=== PATIENT | male | born 1945 | race African-American/Black ===

== ENCOUNTER 2021-04-17 22:08 | Inpatient (IN) | payer OTHER ==
[~2021-04-17] VITALS: Ht 185.4 cm; Wt 101.2 kg
[2021-04-17] MEDS ORDERED: SODIUM CHLORIDE 0.9% 1,000 ML IV ONE (22:45)
[2021-04-17] MEDS ORDERED: ASPIRIN 81MG TABLET PO ONE (22:45)
[2021-04-17 23:58] LABS: EOSINOPHILS % 1.8 % (0.0-5.0); HEMATOCRIT. 36.2 % (42.0-52.0); HEMOGLOBIN. 11.9 g/dL (14.0-18.0); LYMPHOCYTES % 17.1 % (20.0-50.0); MEAN CORPUSCULAR VOLUME 88.2 fL (80.0-94.0); MEAN PLATELET VOLUME 8.3 fl (7.4-10.4); MONOCYTES % 8.3 % (2.0-8.0); NEUTROPHILS % 71.8 % (40.0-76.0); PLATELET 222 x1000/uL (130-400); RED CELL DISTRIBUTION WIDTH 18.3 % (11.6-14.6)
[2021-04-18 00:09] LABS: CHLORIDE 112 mEq/L (98-107)
[2021-04-18] MEDS ORDERED: IPRATROPIUM/ALBUTEROL 0.5-3(2.5)MG/3ML NEB HHN PRN (08:30)
[2021-04-18] MEDS ORDERED: ACETAMINOPHEN 325MG TABLET PO PRN ×2 (08:30)
[2021-04-18] MEDS ORDERED: DOCUSATE SODIUM 100MG CAPSULE PO PRN (08:30)
[2021-04-18] MEDS ORDERED: HYDROCODONE/ACETAMINOPHEN 5/325MG TABLET PO PRN (08:30)
[2021-04-18] MEDS ORDERED: CLONIDINE 0.1MG TABLET PO PRN (08:30)
[2021-04-18] MEDS ORDERED: LORAZEPAM 0.5MG TABLET PO PRN (08:30)
[2021-04-18] MEDS ORDERED: ONDANSETRON HCL 4MG/2ML INJ IV PRN (08:30)
[2021-04-18 09:00] VITALS: BP 152/68
[2021-04-18 09:30] VITALS: BP 152/68
[2021-04-18] MEDS ORDERED: *PATIENT'S OWN MEDICATION STORAGE XX SCH (10:30)
[2021-04-18 12:04] VITALS: BP 124/58
[2021-04-18 14:54] VITALS: BP 113/62
[2021-04-18] MEDS ORDERED: LEVO75TA7 MT (15:47)
[2021-04-18] MEDS ORDERED: ATOR20TA65 MT (15:57)
[2021-04-18] MEDS ORDERED: HYDR-4379 MT (15:57)
[2021-04-18] MEDS ORDERED: CARV25TA47 PO (16:00)
[2021-04-18] MEDS ORDERED: NIFE90TA60 PO (16:06)
[2021-04-18] MEDS ORDERED: ASPI-1497 PO (16:06)
[2021-04-18] MEDS ORDERED: ASPI-1406 PO (16:06)
[2021-04-18] MEDS ORDERED: HYDR-4134 PO (16:14)
[2021-04-18 16:25] VITALS: BP 119/62
[2021-04-18 20:00] VITALS: BP 141/80
[2021-04-18 20:43] LABS: CLARITY URINE CLEAR (CLEAR); COLOR URINE YELLOW (YELLOW); KETONES URINE NEGATIVE (NEGATIVE); LEUKOCYTE ESTERASE URINE NEGATIVE (NEGATIVE); NITRITE URINE NEGATIVE (NEGATIVE); OCCULT BLOOD URINE NEGATIVE (NEGATIVE); PROTEIN URINE 4+ (NEGATIVE); SPECIFIC GRAVITY URINE 1.015 (1.005-1.030); UROBILINOGEN URINE 0.2 E.U./dL (0.2-1.0)
[2021-04-18] MEDS: LEVOTHYROXINE SODIUM 75MCG TABLET PO SCH (20:45)
[2021-04-18] MEDS: ASPIRIN 81MG EC TABLET PO SCH (20:45)
[2021-04-18] MEDS: HYDROCORTISONE 10MG TABLET PO SCH (20:46)
[2021-04-18] MEDS: ATORVASTATIN CALCIUM 20MG TABLET PO SCH (20:46)
[2021-04-18] MEDS: CARVEDILOL 12.5MG TABLET PO SCH (20:46)
[2021-04-18] MEDS: FUROSEMIDE 40MG/4ML VIAL IVP SCH (21:26)
[2021-04-18] MEDS ORDERED: MAGNESIUM/ALUMINUM HYDROXIDE/SIMETHICONE 30ML UDC PO PRN (21:30)
[2021-04-19 00:02] VITALS: BP_SYST 154; BP_SYST 96; BP_DIAS 53; BP_DIAS 59
[2021-04-19 04:20] VITALS: BP 140/56
[2021-04-19] MEDS: LEVOTHYROXINE SODIUM 75MCG TABLET PO SCH (06:30)
[2021-04-19 06:35] LABS: BASOPHILS % 0.4 % (0.0-2.0); EOSINOPHILS % 1.1 % (0.0-5.0); HEMATOCRIT. 34.5 % (42.0-52.0); HEMOGLOBIN. 11.5 g/dL (14.0-18.0); LYMPHOCYTES % 12.5 % (20.0-50.0); MEAN CORPUSCULAR HEMOGLOBIN 29.7 pg (28.0-32.0); MEAN CORPUSCULAR VOLUME 88.7 fL (80.0-94.0); MEAN PLATELET VOLUME 9.3 fl (7.4-10.4); MONOCYTES % 10.8 % (2.0-8.0); NEUTROPHILS % 75.2 % (40.0-76.0); PLATELET 176 x1000/uL (130-400); RED BLOOD CELL COUNT 3.88 mill/uL (4.7-6.1); RED CELL DISTRIBUTION WIDTH 18.2 % (11.6-14.6)
[2021-04-19] MEDS: FUROSEMIDE 40MG/4ML VIAL IVP SCH (07:31)
[2021-04-19 08:00] VITALS: BP 139/85
[2021-04-19 08:40] LABS: FOLIC ACID (FOLATE) SERUM 7.4 ng/mL (>5.38)
[2021-04-19] MEDS ORDERED: NIFEDIPINE XL 90MG TAB PO SCH (09:00)
[2021-04-19] MEDS: CARVEDILOL 12.5MG TABLET PO SCH (09:25)
[2021-04-19] MEDS: HYDROCORTISONE 10MG TABLET PO SCH (09:25)
[2021-04-19] MEDS: HYDRALAZINE HCL 25MG TABLET PO SCH ×2 (09:25→17:39)
[2021-04-19] MEDS: ASPIRIN 81MG EC TABLET PO SCH (09:25)
[2021-04-19] MEDS: ATORVASTATIN CALCIUM 20MG TABLET PO SCH (09:26)
[2021-04-19 12:00] VITALS: BP 141/55
[2021-04-19] MEDS: DILTIAZEM HCL 90MG TABLET PO SCH ×2 (12:00→17:49)
[2021-04-19] MEDS: IPRATROPIUM/ALBUTEROL 0.5-3(2.5)MG/3ML NEB HHN SCH ×2 (12:50→21:07)
[2021-04-19] MEDS: CLONIDINE 0.1MG TABLET PO SCH ×2 (13:47→21:36)
[2021-04-19 16:00] VITALS: BP 107/51
[2021-04-19 18:00] LABS: CREATINE KINASE 45 IU/L (39-308)
[2021-04-19 20:00] VITALS: BP 107/54
[2021-04-20] VITALS: BP 115/49
[2021-04-20] MEDS: IPRATROPIUM/ALBUTEROL 0.5-3(2.5)MG/3ML NEB HHN SCH ×2 (01:18→09:08)
[2021-04-20 04:00] VITALS: BP 115/52
[2021-04-20] MEDS: DILTIAZEM HCL 90MG TABLET PO SCH ×3 (06:00→11:40)
[2021-04-20] MEDS: CLONIDINE 0.1MG TABLET PO SCH (06:00)
[2021-04-20] MEDS: LEVOTHYROXINE SODIUM 75MCG TABLET PO SCH (06:15)
[2021-04-20 06:16] LABS: BASOPHILS % 0.5 % (0.0-2.0); EOSINOPHILS % 4.4 % (0.0-5.0); HEMATOCRIT. 32.2 % (42.0-52.0); HEMOGLOBIN. 10.6 g/dL (14.0-18.0); LYMPHOCYTES % 28.9 % (20.0-50.0); MEAN CORPUSCULAR HEMOGLOBIN 29.2 pg (28.0-32.0); MEAN CORPUSCULAR VOLUME 88.4 fL (80.0-94.0); MEAN PLATELET VOLUME 8.8 fl (7.4-10.4); MONOCYTES % 13.5 % (2.0-8.0); NEUTROPHILS % 52.7 % (40.0-76.0); PLATELET 180 x1000/uL (130-400); RED BLOOD CELL COUNT 3.64 mill/uL (4.7-6.1)
[2021-04-20 08:00] VITALS: BP 112/46
[2021-04-20] MEDS: HYDROCORTISONE 10MG TABLET PO SCH (08:25)
[2021-04-20] MEDS: ASPIRIN 81MG EC TABLET PO SCH (08:25)
[2021-04-20] MEDS: ATORVASTATIN CALCIUM 20MG TABLET PO SCH (08:25)
[2021-04-20] MEDS: HYDRALAZINE HCL 25MG TABLET PO SCH (08:27)
[2021-04-20 11:36] VITALS: BP 112/54
[2021-04-20] MEDS ORDERED: ALBU90AE INH (11:51)
== END 2021-04-20 15:55 | disposition home or self-care (01) | DRG 291 ==
LOC: ER 22:08 → EDBEDREQTM 04-18 01:55 → EDBEDREQ 04-18 01:55 → EDBEDREQDT 04-18 01:55 → EDBEDREQ 04-18 02:37 → EDBEDREQTM 04-18 02:37 → ENRESERV 04-18 07:18 → 6WST 04-18 08:29
PROVIDERS: ADMIT Internal Medicine; ATTEND Internal Medicine
PROC: 5A09357 Assistance with Respiratory Ventilation, Less than 24 Consecutive Hours, Continuous Positive Airway Pressure (ICD-10-PCS; principal; 2021-04-18)
PROC: 5A09357 Assistance with Respiratory Ventilation, Less than 24 Consecutive Hours, Continuous Positive Airway Pressure (ICD-10-PCS; 2021-04-19)
DX: I13.0 Hypertensive heart and chronic kidney disease with heart failure and stage 1 through stage 4 chronic kidney disease, or unspecified chronic kidney disease (principal); I50.33 Acute on chronic diastolic (congestive) heart failure; J96.00 Acute respiratory failure, unspecified whether with hypoxia or hypercapnia; I16.1 Hypertensive emergency; N17.9 Acute kidney failure, unspecified; G47.33 Obstructive sleep apnea (adult) (pediatric); E78.5 Hyperlipidemia, unspecified; E03.9 Hypothyroidism, unspecified; E78.00 Pure hypercholesterolemia, unspecified; J44.9 Chronic obstructive pulmonary disease, unspecified; R00.1 Bradycardia, unspecified; D64.9 Anemia, unspecified; N18.30 Chronic kidney disease, stage 3 unspecified; Z87.891 Personal history of nicotine dependence
CPT/HCPCS: 36415; 71045; 76770; 80048; 80053; 80061; 81003; 82550; 82570; 82607; 82728; 82746; 82962; 83036; 83540; 83550; 83880; 84156; 84443; 84484; 85025; 93005; 93306; 94640; 94660; 99285; J1940; J7030